=== PATIENT | female | born 1945 | race Caucasian/White ===

== ENCOUNTER 2018-11-28 11:53 | Emergency (ER) | payer MEDICARE, BC ==
[~2018-11-28] VITALS: Ht 162.6 cm; Wt 66.0 kg
[~2018-11-28 11:53] MED LIST: ATI0.5T PO; MECL-111 PO
[2018-11-28 12:40] LABS: BASOPHILS # (AUTO) 0.1 X10'3 (0-0.2); BASOPHILS % (AUTO) 0.8 % (0-1); EOSINOPHILS # (AUTO) 0.1 X10'3 (0-0.9); EOSINOPHILS % (AUTO) 0.9 % (0-6); HEMATOCRIT 40.1 % (35.0-45.0); HEMOGLOBIN 13.4 g/dl (12.0-16.0); LYMPHOCYTES # (AUTO) 1.1 X10'3 (1.1-4.8); LYMPHOCYTES % (AUTO) 16.7 % (21-51); MEAN CORPUSCULAR HEMOGLOBIN 28.9 PG (27.0-31.0); MEAN CORPUSCULAR HGB CONC 33.4 g/dL (33.0-36.5); MEAN CORPUSCULAR VOLUME 86.6 FL (78-98); MEAN PLATELET VOLUME 7.5 FL (7.4-10.4); MONOCYTES # (AUTO) 0.5 X10'3 (0-0.9); MONOCYTES % (AUTO) 7.4 % (2-12); NEUTROPHILS # (AUTO) 4.8 X10'3 (1.8-7.7); NEUTROPHILS % (AUTO) 74.2 % (42-75); PLATELET COUNT 230 X10'3 (140-440); RED BLOOD COUNT 4.63 X10'6 (4.20-5.60); RED CELL DISTRIBUTION WIDTH 13.9 % (11.5-14.5); WHITE BLOOD COUNT 6.5 X10'3 (4.5-11.0)
[2018-11-28 12:54] LABS: ALANINE AMINOTRANSFERASE 21 U/L (12-78); ALBUMIN 3.6 G/DL (3.4-5.0); ALBUMIN/GLOBULIN RATIO 0.8 (1.1-1.5); ALKALINE PHOSPHATASE 90 IU/L (46-116); ANION GAP 11 (8-16); ASPARTATE AMINO TRANSFERASE 16 U/L (10-37); BILIRUBIN,TOTAL 0.5 MG/DL (0.1-1.0); BLOOD UREA NITROGEN 10 MG/DL (7-18); BUN/CREATININE RATIO 12.5 (6.6-38.0); CALCIUM 9.4 MG/DL (8.5-10.1); CHLORIDE 104 MMOL/L (99-107); GLUCOSE 132 MG/DL (70-104); SODIUM 140 MMOL/L (135-145); TOTAL CARBON DIOXIDE 24.9 MMOL/L (24-32); TOTAL PROTEIN 8.4 G/DL (6.4-8.2); eGFR 70 ML/MIN
[2018-11-28 12:59] LABS: PARTIAL THROMBOPLASTIN TIME 26 SECONDS (22-32)
[2018-11-28 13:41] VITALS: BP 157/78
[2018-11-28] MEDS ORDERED: NITR0.4T51 SL (14:13)
--- NOTE | 2018-11-28 14:15 | NUR ---
PATIENT DOES NOT WANT TO STAY IN THE HOSPITAL; SHE WANTS TO GO HOME. PATIENT IS DISCHARGED HOME AGAINST MEDICAL ADVICE. PATIENT VERBALIZED DISCHARGE PLAN. PATIENT VERBALIZED THE RISK OF BY NOT STAYING IN THE HOSPITAL; PATIENT VERBALIZED THE RISK OF HER DRIVING AND RISKING THE LIVES OF OTHERS WELL HER OWN LIFE. PATIENT WILL TAKE NITRO DIRECTED FOR CHEST PAIN. PATIENT WILL CALL DR MIRANDA OFFICE TODAY FOR APPOINTMENT. PATIENT VERBALIZED THAT SHE HAS A CARDIAC STRESS TEST SCHEDULED FOR 0900 IN THE MORNING. PATIENT VERBALIZED THAT SHE WILL ARRIVE AT 0815. PATIENT DENIES CHEST PAIN, NAUSEA, NUMBNESS/TINGLING, SOB. PATIENT AMBULATED OUT OF HOSPITAL WNL.
--- NOTE | 2018-11-28 14:20 | NUR ---
98.1 ORAL SR 90 165/81 RR 18 98% ON RA DENIES PAIN
== END 2018-11-28 14:37 | disposition left against medical advice (07) ==
LOC: ER 11:53
DX: R07.89 Other chest pain (principal); R00.2 Palpitations; R06.02 Shortness of breath; E78.00 Pure hypercholesterolemia, unspecified; Z98.890 Other specified postprocedural states; Z79.899 Other long term (current) drug therapy
CPT/HCPCS: 36415; 71045; 80053; 84484; 85025; 85610; 85730; 93005; 99284

== ENCOUNTER 2018-11-30 20:00 | Emergency (ER) | payer MEDICARE, BC ==
[~2018-11-30] VITALS: Ht 165.1 cm; Wt 64.5 kg
[~2018-11-30 20:00] MED LIST changes: +NITR0.4T51 SL
[2018-11-30] MEDS ORDERED: ketorolac tromethamine 15mg/ml inj. IM ONE (21:20)
[2018-11-30] MEDS ORDERED: ondansetron 4mg rapidly disintigrating tab PO ONE (21:20)
[2018-11-30] MEDS ORDERED: dexamethasone 4mg/ml inj IM SCH (21:20)
[2018-11-30 22:16] VITALS: BP 156/75
== END 2018-11-30 22:43 | disposition home or self-care (01) ==
LOC: ER 20:00
DX: R51 Headache (principal); R11.0 Nausea; E78.00 Pure hypercholesterolemia, unspecified; Z79.899 Other long term (current) drug therapy; Z98.890 Other specified postprocedural states
CPT/HCPCS: 96372; 99283; J1100; J1885

== ENCOUNTER 2018-12-05 10:04 | Day surgery (SDC) | payer MEDICARE, BC ==
[2018-12-04 12:08] LABS: ALBUMIN 3.6 G/DL (3.4-5.0); ANION GAP 10 (8-16); BASOPHILS % (AUTO) 0.3 % (0-1); BLOOD UREA NITROGEN 14 MG/DL (7-18); BUN/CREATININE RATIO 17.1 (6.6-38.0); CALCIUM 8.6 MG/DL (8.5-10.1); CHLORIDE 100 MMOL/L (99-107); CREATININE 0.82 MG/DL (0.40-0.90); EOSINOPHILS % (AUTO) 0.4 % (0-6); GLUCOSE 117 MG/DL (70-104); HEMATOCRIT 41.7 % (35.0-45.0); HEMOGLOBIN 14.2 g/dl (12.0-16.0); LYMPHOCYTES # (AUTO) 0.8 X10'3 (1.1-4.8); LYMPHOCYTES % (AUTO) 8.8 % (21-51); MEAN CORPUSCULAR HEMOGLOBIN 29.4 PG (27.0-31.0); MEAN CORPUSCULAR HGB CONC 34.1 g/dL (33.0-36.5); MEAN CORPUSCULAR VOLUME 86.1 FL (78-98); MEAN PLATELET VOLUME 7.5 FL (7.4-10.4); MONOCYTES # (AUTO) 0.7 X10'3 (0-0.9); MONOCYTES % (AUTO) 7.3 % (2-12); NEUTROPHILS # (AUTO) 7.7 X10'3 (1.8-7.7); NEUTROPHILS % (AUTO) 83.2 % (42-75); PLATELET COUNT 257 X10'3 (140-440); POTASSIUM 3.7 MMOL/L (3.5-5.1); RED BLOOD COUNT 4.85 X10'6 (4.20-5.60); RED CELL DISTRIBUTION WIDTH 14.1 % (11.5-14.5); SODIUM 136 MMOL/L (135-145); TOTAL CARBON DIOXIDE 26.3 MMOL/L (24-32); WHITE BLOOD COUNT 9.3 X10'3 (4.5-11.0); eGFR 68 ML/MIN
[2018-12-04 12:11] LABS: PARTIAL THROMBOPLASTIN TIME 26 SECONDS (22-32)
[2018-12-05] VITALS (12 sets, daily range): BP systolic 130–165; BP diastolic 67–81
[~2018-12-05] VITALS: Ht 165.1 cm; Wt 65.1 kg
[2018-12-05] MEDS ORDERED: normal saline 1000ml 1,000 ML IV SCH (10:25)
[2018-12-05] MEDS ORDERED: LORazepam 0.5 MG tablet PO PRN (10:25)
[2018-12-05] MEDS ORDERED: diphenhydrAMINE 25mg capsule PO PRN (10:25)
[2018-12-05] MEDS ORDERED: ATOR40TA PO (11:02)
[2018-12-05] MEDS ORDERED: LIDOcaine/PRILOcaine 5gm cream TP ONE (11:30)
[2018-12-05] MEDS ORDERED: MULT-933 PO (11:36)
[2018-12-05] MEDS ORDERED: ASPI-1265 PO (11:36)
[2018-12-05] MEDS ORDERED: CHOL100046 PO (11:36)
[2018-12-05] MEDS ORDERED: METO-467 PO (11:36)
[2018-12-05] MEDS ORDERED: UBID100C16 PO (11:36)
[2018-12-05] MEDS ORDERED: CALCIUM PO (11:36)
[2018-12-05] MEDS ORDERED: KRIL1CAP PO (11:36)
[2018-12-05] MEDS ORDERED: LEVO25TA2 PO (11:36)
[2018-12-05] MEDS ORDERED: CALC0.253 PO (11:36)
[2018-12-05] MEDS ORDERED: nitroGLYCERIN-Tridil 50MG/D5W 250 ML IV ONE (12:04)
[2018-12-05] MEDS ORDERED: fentaNYL/PF 50MCG/1 ML 2ML syringe ONE (12:05)
[2018-12-05] MEDS ORDERED: LIDOcaine 1% (10mg/ml)w/preservative injection 20ml MDV ONE (12:05)
[2018-12-05] MEDS ORDERED: heparin 1,000unit/ml 10ml vial 10 ML ONE (12:05)
[2018-12-05] MEDS ORDERED: iohexol 350 MG/ML 50ML vial IV ONE (12:05)
[2018-12-05] MEDS ORDERED: midazolam 2 mg/2 ml injection ONE (12:05)
[2018-12-05] MEDS ORDERED: iohexol 350 MG/1 ML 200ml bottle ONE (12:05)
[2018-12-05] MEDS ORDERED: verapamil 2.5 mg/ml inj IV ONE (12:18)
[2018-12-05 13:16] LABS: ISTAT Hct MIX 34 %PCV (35-48); ISTAT O2 SATURATION MIX VENOUS 80 % (60-80); ISTAT SOURCE MIX
[2018-12-05 13:16] LABS: ISTAT HGB ART 12.2 g/dl (12.0-16.0); ISTAT Hct ART 36 %PCV (35-48); ISTAT O2 SATURATION ARTERIAL 92 % (95-98); ISTAT SOURCE ART
[2018-12-05] MEDS ORDERED: ondansetron/PF 4mg/2ml inj ONE (14:47)
--- NOTE | 2018-12-05 15:00 | NUR ---
PATIENT UP TO RESTROOM WITH ASSISTANCE. VERY NAUSEATED. ZOFRAN GIVEN COMPLAINT. DR. ROMANO CALLED AND UPDATE GIVEN ON STATUS. PATIENT FELT BETTER AFTER HAVING ZOFRAN.
[2018-12-05] MEDS ORDERED: ondansetron/PF 4mg/2ml inj IV ONE (15:30)
== END 2018-12-05 19:00 | disposition home or self-care (01) ==
LOC: SSTAY O 10:04
PROVIDERS: ATTEND Internal Medicine Cardiovascular Disease
DX: I25.119 Atherosclerotic heart disease of native coronary artery with unspecified angina pectoris (principal)
CPT/HCPCS: 36415; 80048; 82803; 85014; 85025; 85610; 85730; 93005; 93460; 99152; 99153; A6257; J1644; J2001; J2250; J2405; J3010; J7030; Q0163; Q9967; A4620; C1769; J3490

== ENCOUNTER 2023-01-10 06:02 | Day surgery (SDC) | payer MEDICARE, BC ==
[2023-01-09 11:12] LABS: BASOPHILS % (AUTO) 0.1 % (0-1); EOSINOPHILS % (AUTO) 0.1 % (0-6); LYMPHOCYTES # (AUTO) 0.8 X10'3 (1.1-4.8); LYMPHOCYTES % (AUTO) 7.1 % (21-51); MEAN CORPUSCULAR HEMOGLOBIN 29.4 PG (27.0-31.0); MEAN CORPUSCULAR HGB CONC 33.4 g/dL (33.0-36.5); MEAN CORPUSCULAR VOLUME 88.2 FL (78-98); MEAN PLATELET VOLUME 7.2 FL (7.4-10.4); MONOCYTES # (AUTO) 0.7 X10'3 (0-0.9); MONOCYTES % (AUTO) 5.7 % (2-12); PLATELET COUNT 188 X10'3 (140-440); RED BLOOD COUNT 4.43 X10'6 (4.20-5.60); RED CELL DISTRIBUTION WIDTH 13.1 % (11.5-14.5); WHITE BLOOD COUNT 11.5 X10'3 (4.5-11.0)
[2023-01-09 11:21] LABS: ALBUMIN 3.7 G/DL (3.4-5.0); ANION GAP 9 (8-16); BLOOD UREA NITROGEN 13 MG/DL (7-18); BUN/CREATININE RATIO 17.1 (10.0-20.0); CHLORIDE 104 MMOL/L (99-107); CREATININE 0.76 MG/DL (0.40-0.90); GLUCOSE 118 MG/DL (70-104); POTASSIUM 4.2 MMOL/L (3.5-5.1); SODIUM 141 MMOL/L (135-145); eGFR 74 ML/MIN
[2023-01-09 11:25] LABS: APTT 27 SECONDS (22-32)
[2023-01-10] VITALS (12 sets, daily range): BP systolic 120–181; BP diastolic 56–94
[~2023-01-10] VITALS: Ht 165.1 cm; Wt 55.4 kg
[~2023-01-10 06:02] MED LIST changes: +ASPI-1265 PO; -ATI0.5T PO; +ATOR40TA PO; +CALC-1215 PO; +CALC0.253 PO; +CHOL100046 PO; +EZET10TA48 PO; +KRIL1CAP PO; +LEVO25TA2 PO; -MECL-111 PO; +METO-467 PO; +MULT-933 PO; -NITR0.4T51 SL; +ROSU40TA22 PO; +UBID100C16 PO
[2023-01-10] MEDS ORDERED: LORazepam 0.5 MG tablet PO PRN (06:25)
[2023-01-10] MEDS ORDERED: normal saline 1,000 ML IV SCH (06:25)
[2023-01-10] MEDS ORDERED: diphenhydrAMINE 25mg capsule PO PRN (06:25)
[2023-01-10] MEDS ORDERED: LEVO112T39 PO (06:31)
[2023-01-10] MEDS ORDERED: METO50TA16 PO (06:31)
[2023-01-10] MEDS ORDERED: CALC600T35 PO (06:32)
[2023-01-10] MEDS ORDERED: nitroGLYCERIN-Tridil 50MG/D5W 250 ML IV ONE (07:35)
[2023-01-10] MEDS ORDERED: iohexol 350MG/ML 100ml bottle IV ONE (07:36)
[2023-01-10] MEDS ORDERED: heparin 1,000unit/ml 10ml vial 10 ML ONE (07:36)
[2023-01-10] MEDS ORDERED: fentaNYL/PF 50MCG/1 ML 2ML syringe ONE (07:36)
[2023-01-10] MEDS ORDERED: iohexol 350 MG/ML 50ML vial IV ONE ×2 (07:36→09:02)
[2023-01-10] MEDS ORDERED: verapamil 2.5 mg/ml inj IV ONE (07:36)
[2023-01-10] MEDS ORDERED: midazolam 1 mg/ML 2ml injection ONE (07:36)
[2023-01-10] MEDS ORDERED: LIDOcaine 1% (10mg/ml) 2ml vial ONE ×2 (08:30→08:31)
[2023-01-10] MEDS ORDERED: metoprolol tartrate 1mg/ml inj IV ONE (08:40)
[2023-01-10] MEDS ORDERED: LIDOcaine 1% 30ml preserv. free vial ONE (09:07)
[2023-01-10 09:47] LABS: ISTAT HGB ART 11.9 g/dl (12.0-16.0); ISTAT Hct ART 35 %PCV (35-45); ISTAT O2 SATURATION ARTERIAL 99 % (95-98); ISTAT SOURCE ART
[2023-01-10 10:48] LABS: ISTAT Hct MIX 35 %PCV (35-45); ISTAT O2 SATURATION MIX VENOUS 71 % (60-80); ISTAT SOURCE VEN
[2023-01-10] MEDS ORDERED: normal saline 1000ml 1,000 ML IV SCH (11:05)
== END 2023-01-10 15:10 | disposition home or self-care (01) ==
LOC: SSTAY O 06:02
PROVIDERS: ATTEND Internal Medicine Cardiovascular Disease
DX: I25.119 Atherosclerotic heart disease of native coronary artery with unspecified angina pectoris (principal); I10 Essential (primary) hypertension; E78.5 Hyperlipidemia, unspecified; I34.0 Nonrheumatic mitral (valve) insufficiency; E03.9 Hypothyroidism, unspecified; Z98.890 Other specified postprocedural states; Z82.49 Family history of ischemic heart disease and other diseases of the circulatory system; Z79.01 Long term (current) use of anticoagulants; Z79.899 Other long term (current) drug therapy
CPT/HCPCS: 36415; 76937; 80048; 82803; 85014; 85025; 85610; 85730; 93005; 93460; 99152; 99153; A6258; C1769; C1894; J1644; J2250; J3010; J3490; J7030; Q0163; Q9967; A6402; C1725; C1751

== ENCOUNTER 2024-09-17 21:56 | Emergency (ER) | payer MEDICARE, BC ==
[~2024-09-17] VITALS: Ht 162.6 cm; Wt 57.4 kg
[~2024-09-17 21:56] MED LIST changes: +AMIO200T67 PO; +APIX5TAB3 PO; -ASPI-1265 PO; -ATOR40TA PO; -CALC-1215 PO; -CHOL100046 PO; +EMPA10TA PO; +ISOS30TA84 PO; -KRIL1CAP PO; +LEVO112T52 PO; -LEVO25TA2 PO; +METO-395 PO; -METO-467 PO; -MULT-933 PO; -ROSU40TA22 PO; +ROSU40TA89 PO; +SACU1TAB PO; +SPIR25TA PO; -UBID100C16 PO; +VITA-268 PO
[2024-09-17 21:59] VITALS: TEMP 98
[2024-09-17 22:36] LABS: BASOPHILS % (AUTO) 0.6 % (0-1); EOSINOPHILS % (AUTO) 0.4 % (0-6); HEMATOCRIT 29.6 % (35.0-45.0); HEMOGLOBIN 10.1 g/dl (12.0-16.0); LYMPHOCYTES # (AUTO) 0.9 X10'3 (1.1-4.8); LYMPHOCYTES % (AUTO) 13.1 % (21-51); MEAN CORPUSCULAR HEMOGLOBIN 29.9 PG (27.0-31.0); MEAN PLATELET VOLUME 6.7 FL (7.4-10.4); MONOCYTES # (AUTO) 0.8 X10'3 (0-0.9); MONOCYTES % (AUTO) 11.5 % (2-12); NEUTROPHILS # (AUTO) 4.9 X10'3 (1.8-7.7); NEUTROPHILS % (AUTO) 74.4 % (42-75); PLATELET COUNT 358 X10'3 (140-440); RED BLOOD COUNT 3.37 X10'6 (4.20-5.60); RED CELL DISTRIBUTION WIDTH 15.8 % (11.5-14.5); WHITE BLOOD COUNT 6.6 X10'3 (4.5-11.0)
[2024-09-17 22:45] LABS: ALANINE AMINOTRANSFERASE 24 U/L (12-78); ALBUMIN 3.3 G/DL (3.4-5.0); ALBUMIN/GLOBULIN RATIO 0.8 (1.1-1.5); ALKALINE PHOSPHATASE 159 IU/L (46-116); ANION GAP 7 (8-16); ASPARTATE AMINO TRANSFERASE 21 U/L (10-37); BILIRUBIN,TOTAL 0.9 MG/DL (0.1-1.0); BLOOD UREA NITROGEN 15 MG/DL (7-18); BUN/CREATININE RATIO 13.2 (10.0-20.0); CALCIUM 8.6 MG/DL (8.5-10.1); CHLORIDE 101 MMOL/L (99-107); CREATININE 1.14 MG/DL (0.40-0.90); GLUCOSE 98 MG/DL (70-104); LIPASE 50 U/L (16-77); POTASSIUM 4.3 MMOL/L (3.5-5.1); SODIUM 134 MMOL/L (135-145); TOTAL CARBON DIOXIDE 26.2 MMOL/L (24-32); TOTAL PROTEIN 7.7 G/DL (6.4-8.2); eCRCL 35 ML/MIN; eGFR 46 ML/MIN
[2024-09-17 22:45] LABS: UA COLLECTION TYPE CLN CATCH MIDSTREAM
[2024-09-17 22:46] LABS: BILIRUBIN,URINE NEGATIVE (Neg); CLARITY,URINE CLEAR (Clear); COLOR,URINE YELLOW (Yellow); GLUCOSE, URINE >=1000 mg/dl (Neg); KETONES,URINE NEGATIVE (Neg); LEUKOCYTE ESTERASE ,URINE NEGATIVE (Neg); NITRITES, URINE NEGATIVE (Neg); OCCULT BLOOD,URINE TRACE-INTACT (Neg); PROTEIN,URINE NEGATIVE (Neg); UROBILINOGEN,URINE 0.2 E.U/dL (0.2-1.0)
[2024-09-17 22:54] LABS: BACTERIA,URINE FEW /HPF (Neg); RBC,URINE 0-2 /HPF (0-2); SQUAMOUS EPITHELIAL CELL,UR FEW /LPF (FEW); WBC,URINE 0-4 /HPF (0-4)
[2024-09-18] MEDS ORDERED: ACET-1025 PO (02:03)
[2024-09-18] MEDS: acetaminophen 325mg tablet PO ONE (02:10)
[2024-09-18 02:25] VITALS: BP 124/77; PULSE 78; RESP 19; O2SAT 99
== END 2024-09-18 02:28 | disposition home or self-care (01) ==
LOC: ER 21:56
DX: R10.31 Right lower quadrant pain (principal); E78.00 Pure hypercholesterolemia, unspecified; E07.9 Disorder of thyroid, unspecified; Z98.890 Other specified postprocedural states; Z79.899 Other long term (current) drug therapy; Z88.8 Allergy status to other drugs, medicaments and biological substances
CPT/HCPCS: 36415; 74176; 80053; 81001; 83690; 85025; 99284; 99285

== ENCOUNTER 2025-03-23 19:19 | Emergency (ER) | payer MEDICARE, BC ==
[~2025-03-23] VITALS: Ht 162.6 cm; Wt 80.0 kg
[2025-03-23 19:25] VITALS: BP 185/69; PULSE 60; RESP 16; TEMP 98.2; O2SAT 99
[2025-03-23] MEDS: acetaminophen 325mg tablet PO ONE (20:01)
--- NOTE | 2025-03-23 20:07 | RADIOLOGY REPORT ---
EXAM: DI KNEE, COMP 4 VW MIN CLINICAL INDICATION: KNEE PAIN right TECHNIQUE: DI KNEE, COMP 4 VW MIN Comparison: None FINDINGS/IMPRESSION: There is no evidence of acute fracture or dislocation. Advanced right knee osteoarthritis. The alignment is anatomical. There is no radiopaque foreign body.
--- NOTE | 2025-03-23 21:46 | Physician Documentation ---
History of Present Illness ~ Chief Complaint: Knee Pain Stated Complaint: HURT LEG Time Seen by MD: 21:28 Primary Medical Doctor: none HPI This 79-year-old female presents with right knee pain, patient reports she injured the knee proximally two weeks ago and a ground level fall where she tripped and struck the knee, patient reports it was feeling better though over the last three days has become more painful. Patient reports the pain is worse in the medial proximal fishman patient reports no other injuries or acute symptoms or concerns. Tetanus witin 5 years: Yes (2017) Medication Reconciliation Allergies: Coded Allergies: No Known Drug Allergies (Verified Allergy, Unknown, 02/05/23) nitroglycerin (Verified Adverse Reaction, Severe, HEADACHE, 02/05/23) Scheduled Amiodarone HCl (Amiodarone HCl), 200 MG PO BID Apixaban (Eliquis), 5 MG PO BID Calcitriol (Calcitriol), 1 CAP PO DAILY, (Reported) Empagliflozin (Jardiance), 10 MG PO DAILY Ezetimibe (Ezetimibe), 1 TAB PO DAILY, (Reported) Isosorbide Mononitrate (Isosorbide Mononitrate Er), 30 MG PO DAILY Levothyroxine Sodium (Synthroid), 1 TAB PO DAILY, (Reported) Metoprolol Succinate (Metoprolol Succinate), 50 MG PO DAILY Rosuvastatin Calcium (Rosuvastatin Calcium), 1 TAB PO DAILY, (Reported) Sacubitril/Valsartan (Entresto 24 mg-26 mg Tablet), 1 TABLET PO BID Spironolactone (Aldactone), 25 MG PO DAILY@0830 Vitamin B Complex (B Complex), 1 TAB PO DAILY, (Reported) Past Medical History Past Medical History: High Cholesterol, Thyroid (unspecified) Past Surgical History: orthopedic surgeries Alcohol Use: None Drug Use: none Lives with: Family Lives In: Home Review of Systems ROS Right knee pain as stated above in the HPI, otherwise all systems are reviewed and negative. Physical Exam Vital Signs: Temperature: 98.2, Source: Temporal, Heart Rate: 60, Respiratory Rate: 16, BP: 185/69, Pulse Oximetry: 99, Weight: 80.000 Oxygen Flow Rate: 0 Physical Exam VITALS: Reviewed and as above. GENERAL: Alert, nontoxic appearing, no apparent distress. RESPIRATORY: No increased work of breathing, no respiratory distress, speaking in full clear sentences MUSCULOSKELETAL: Tenderness to palpation to right knee at joint line and right medial fishman just distal to knee, no swelling, no ecchymosis, no erythema, no heat to the touch, range of motion intact without pain out of proportion with exam, pedal pulse intact distal to injury. Progress Results/Orders Results/Orders Orders - CRUZITO JACOBSON Ortho Orders (03/23/25 ) Medications Received in ER Medications (Trade) Dose Ordered Sig/Paul Route PRN Reason Start Time Stop Time Status Last Admin Dose Admin (Tylenol tablet) 325 mg ONCE ONCE PO 03/23/25 19:35 03/23/25 19:36 DC 03/23/25 20:01 325 MG Vital Signs 03/23/25 19:25 Temp 98.2 Pulse 60 Resp 16 B/P (MAP) 185/69 Pulse Ox 99 O2 Flow Rate 0 EKG/XRAY/CT/US/VASC/MRI Bone/Soft Tissue X-Ray (Ext.) : Additional Comment EXAM: DI KNEE, COMP 4 VW MIN CLINICAL INDICATION: KNEE PAIN right TECHNIQUE: DI KNEE, COMP 4 VW MIN Comparison: None FINDINGS/IMPRESSION: There is no evidence of acute fracture or dislocation. Advanced right knee osteoarthritis. The alignment is anatomical. There is no radiopaque foreign body. Electronically Signed by:ILYA FRANCES MD Date & Time: 03/23/252003 Dictated by: ILYA FRANCES MD Dictation date and time: 03/23/252003 I have reviewed and agree with the radiology report. I have reviewed and interpreted the imaging as: No fracture or dislocation Medical Decision Making Findings This 79-year-old female presented with right knee pain, physical exam demonstrated tenderness to palpation to the medial aspect of the knee greatest just distal to the knee with some tenderness to the lateral aspect as well though reassuringly there was no ecchymosis, significant swelling, erythema, or pain out of proportion with exam. Patient was able to move her leg through range of motion and bear weight though with some amount of pain though is able to ambulate with walker without significant pain patient medicated for pain in department. Limb was neurovascularly intact distal to injury. X-ray did not demonstrate evidence of fracture or dislocation. No evidence of septic joint. Suspect this is a soft tissue injury that may not be related to patient's fall two weeks ago as patient had reported the pain had resolved falling that fall. Remainder of physical exam was benign vital signs stable. Plan is to treat with rest, compression, elevation, and ice. Patient provided follow up instructions and return to care precautions which she verbalized understanding of. Knee Diff Dx:Considerations: Include: Abrasion, Arthritis, DJD, Fracture-femur, Fracture-fibula, Fracture-patella, Fracture-tibia, Gout, Hematoma, Laceration, Meniscus injury, Neurovascular injury, Rheumatoid arthritis, Septic, Sprain Departure Disposition: 01 HOME / SELF CARE / HOMELESS Impression: Primary Impression: Knee pain Qualified Codes: M25.561 - Pain in right knee Condition: Improved Discharge Instructions: Acute Knee Pain, Adult, RICE Therapy for Routine Care of Injuries, [id number] Additional Instructions: There was no evidence of a fracture or dislocation on your x-ray, this is likely a soft tissue injury got we will require follow up with the primary care laila bhagat for possible orthopedist or physical therapy referral. Please use the crutches to keep weight off of the knee and rest it, please see the attached home care instructions for rest, ice compression, and elevation treatment of the injury. You may use ibuprofen and or Tylenol as directed by the [id number] packaging for pain. Please follow up with your primary care provider in the next few days. Please return to the emergency department for any new or worsening concerning symptoms. Education Educated: Patient Educated regarding: diagnosis, treatment, prognosis, need for follow up Signature Scribe Signature: No scribe Attestation: The note accurately reflects work and decisions made by me.RAMAKRISHNA Moreira 03/24/25 02:02 CRUZITO JACOBSON Mar 23, 2025 21:46
== END 2025-03-23 22:15 | disposition home or self-care (01) ==
LOC: ER 22:14
DX: M25.561 Pain in right knee (principal); E78.00 Pure hypercholesterolemia, unspecified
CPT/HCPCS: 73564; 99284; A6449